=== PATIENT | male | born 1980 | race Caucasian/White ===

== ENCOUNTER 2022-03-08 06:15 | Day surgery (SDC) | payer BC ==
[2022-03-08] MEDS ORDERED: Bupivacaine 0.5%/EPINEPHrine 1:200,000 50 ML MDV ONE (06:34)
[2022-03-08] MEDS ORDERED: metroNIDAZOLE/Normal Saline 500 MG in Premix Bag 1 BAG IV ONE (07:00)
[2022-03-08] MEDS ORDERED: ceFAZolin 2 GM in Sodium Chloride 0.9% 50 ML IV ONE (07:00)
[2022-03-08] MEDS ORDERED: Sodium Chloride 0.9% 1,000 ML IV SCH (07:00)
[2022-03-08] MEDS ORDERED: Glycopyrrolate 0.2 MG/ML 5 ML MDV ONE (07:10)
[2022-03-08] MEDS ORDERED: fentaNYL 250 MCG/5 ML SDV ONE ×2 (07:10→08:59)
[2022-03-08] MEDS ORDERED: Neostigmine Methylsulfate 1 MG/ML 5 ML Syringe ONE (07:10)
[2022-03-08] MEDS ORDERED: Rocuronium 50 MG/5 ML Vial ONE ×2 (07:10→09:56)
[2022-03-08] MEDS ORDERED: Propofol 200 MG/20 ML SDV ONE (07:10)
[2022-03-08] MEDS ORDERED: Succinylcholine 200 MG/10 ML MDV ONE (07:10)
[2022-03-08] MEDS ORDERED: Dexamethasone 4 MG/ML SDV ONE (07:10)
[2022-03-08] MEDS ORDERED: Ondansetron 4 MG/2 ML SDV ONE (07:10)
[2022-03-08] MEDS ORDERED: Labetalol 20 MG/4 ML Syringe ONE (09:57)
[2022-03-08] MEDS ORDERED: fentaNYL 100 MCG/2 ML SDV ONE (10:14)
[2022-03-08] MEDS ORDERED: Lactated Ringers 1,000 ML ONE (11:03)
[2022-03-08] MEDS ORDERED: Ketorolac 30 MG/ML SDV ONE (11:09)
[2022-03-08] MEDS ORDERED: Acetaminophen/HYDROcodone 325-5 MG Tab PO PRN (13:42)
== END 2022-03-08 14:47 | disposition home or self-care (01) ==
LOC: JP.SDS 06:15
PROVIDERS: ATTEND Surgery
PROC: 0WUF4JZ Supplement Abdominal Wall with Synthetic Substitute, Percutaneous Endoscopic Approach (ICD-10-PCS; principal; 2022-03-08)
PROC: 8E0W4CZ Robotic Assisted Procedure of Trunk Region, Percutaneous Endoscopic Approach (ICD-10-PCS; 2022-03-08)
DX: K43.9 Ventral hernia without obstruction or gangrene (principal); F17.220 Nicotine dependence, chewing tobacco, uncomplicated
CPT/HCPCS: 36415; 49652; 85025; A9270; C1781; J0171; J0330; J0690; J1100; J1885; J2405; J2704; J2710; J2795; J3010; J3490; J7030; J7120